=== PATIENT | female | born 2000 | race Caucasian/White ===

== ENCOUNTER 2020-12-26 04:11 | Emergency (ER) | payer OTHER ==
[~2020-12-26] VITALS: Ht 175.3 cm; Wt 75.0 kg
[2020-12-26 04:15] VITALS: BP 124/80
[2020-12-26] MEDS ORDERED: PENI500T PO (04:59)
[2020-12-26] MEDS ORDERED: ACETAMINOPHEN 500 MG TABLET PO ONE (05:00)
--- NOTE | 2020-12-26 05:00 | PHYS DOC ---
Past History Past Surgical History: No Surgical History Alcohol Use: None General Adult EDM: Chief Complaint: SORE THROAT HPI: HPI: Patient is a [age] year old [sex] who presents with [] Review of Systems: Review of Systems: Constitutional: Denies fever or chills Eyes: Denies change in visual acuity HENT: Denies nasal congestion or sore throat Respiratory: Denies cough or shortness of breath Cardiovascular: Denies chest pain or edema GI: Denies abdominal pain, nausea, vomiting, bloody stools or diarrhea : Denies dysuria Musculoskeletal: Denies back pain or joint pain Integument: Denies rash Neurologic: Denies headache, focal weakness or sensory changes Endocrine: Denies polyuria or polydipsia Lymphatic: Denies swollen glands Psychiatric: Denies depression or anxiety Current Medications: Current Meds: Current Medications Medications (Trade) Dose Ordered Sig/Abdiel Start Time Stop Time Status Last Admin Dose Admin Acetaminophen (Tylenol) 1,000 mg 1X ONCE 12/26/20 05:00 12/26/20 05:01 12/26/20 04:47 1,000 MG Penicillin V Potassium (Veetid) 500 mg 1X ONCE 12/26/20 05:00 12/26/20 05:01 UNV Allergies: Allergies: Allergies Coded Allergies Type Severity Reaction Last Updated Verified No Known Drug Allergies 12/26/20 No Physical Exam: PE: Constitutional: Well developed, well nourished, no acute distress, non-toxic appearance. [] HENT: Normocephalic, atraumatic, bilateral external ears normal, oropharynx moist, no oral exudates, nose normal. [] Eyes: PERRLA, EOMI, conjunctiva normal, no discharge. [] Neck: Normal range of motion, no tenderness, supple, no stridor. [] Cardiovascular:Heart rate regular rhythm, no murmur [] Lungs & Thorax: Bilateral breath sounds clear to auscultation [] Abdomen: Bowel sounds normal, soft, no tenderness, no masses, no pulsatile masses. [] Skin: Warm, dry, no erythema, no rash. [] Back: No tenderness, no CVA tenderness. [] Extremities: No tenderness, no cyanosis, no clubbing, ROM intact, no edema. [] Neurologic: Alert and oriented X 3, normal motor function, normal sensory function, no focal deficits noted. [] Psychologic: Affect normal, judgement normal, mood normal. [] Current Patient Data: Vital Signs: Vital Signs Date Time Temp Pulse Resp B/P (MAP) Pulse Ox O2 Delivery O2 Flow Rate FiO2 12/26/20 04:15 100.7 120 18 124/80 (95) 97 Room Air EKG: EKG: [] Radiology/Procedures: Radiology/Procedures: [] Heart Score: Risk Factors: Risk Factors: DM, Current or recent (<one month) smoker, HTN, HLP, family history of CAD, obesity. Risk Scores: Score 0 - 3: 2.5% MACE over next 6 weeks - Discharge Home Score 4 - 6: 20.3% MACE over next 6 weeks - Admit for Clinical Observation Score 7 - 10: 72.7% MACE over next 6 weeks - Early Invasive Strategies Course & Med Decision Making: Course & Med Decision Making Pertinent Labs and Imaging studies reviewed. (See chart for details) [] Dragon Disclaimer: Dragon Disclaimer: This electronic medical record was generated, in whole or in part, using a voice recognition dictation system. Departure Departure: Impression: Primary Impression: Strep pharyngitis Disposition: HOME / SELF CARE / HOMELESS Condition: STABLE Referrals: LAQUITA SCHAEFER DO, M[facility] (PCP) Patient Instructions: Strep Throat, [id number] Additional Instructions: Take over the counter Tylenol and/or Ibuprofen for pain or discomfort. Take prescribed antibiotics to completion. Scripts Penicillin V Potassium (PENICILLIN V POTASSIUM) 500 Mg Tablet 1 TAB PO BID for Strep throat for 10 Days, #20 TAB Prov: MAXIM CONTRERAS DO 12/26/20 MAXIM CONTRERAS DO Dec 26, 2020 04:59
[2020-12-26] MEDS ORDERED: DEXAMETHASONE 4 MG TABLET PO ONE (05:30)
[2020-12-26] MEDS ORDERED: PENICILLIN V K 250 MG TABLET. PO ONE (05:30)
== END 2020-12-26 05:05 | disposition home or self-care (01) ==
LOC: ER 04:11
DX: J02.0 Streptococcal pharyngitis (principal)
CPT/HCPCS: 87880; 99284; J8540

== ENCOUNTER 2021-01-31 13:14 | Emergency (ER) | payer OTHER ==
[~2021-01-31] VITALS: Ht 175.3 cm; Wt 75.0 kg
[~2021-01-31 13:14] MED LIST: PENI500T PO
[2021-01-31 13:40] VITALS: BP 110/80
[2021-01-31] MEDS ORDERED: CYCL5TAB PO (15:26)
--- NOTE | 2021-01-31 15:28 | PHYS DOC ---
Past History Past Surgical History: No Surgical History (NATA SANTOS APRN) Alcohol Use: None (NATA SANTOS APRN) General Adult EDM: Chief Complaint: HIP PAIN HPI: HPI: Patient is a 21-year-old female who presents to the emergency department today for bilateral hip/groin pain. Patient reports that she was running when she slipped in her legs went behind her and she feels like she pulled a muscle in her groin. Patient denies any fall or other injury. She rates her pain 8 out of 10. It is worse with movement. No treatment prior to arrival. Patient denies any loss of bowel or bladder, urinary symptoms or saddle anesthesias. (NATA SANTOS APRN) Review of Systems: Review of Systems: GUsee hpi Musculoskeletal: see hpi Neurologic: see hpi (NATA SANTOS APRN) Current Medications: Current Meds: Current Medications Medications (Trade) Dose Ordered Sig/Abdiel Start Time Stop Time Status Last Admin Dose Admin Acetaminophen/ Hydrocodone Bitart (Lortab 5/325) 1 tab 1X ONCE 01/31/21 15:30 01/31/21 15:31 UNV (NATA SANTOS APRN) Allergies: Allergies: Allergies Coded Allergies Type Severity Reaction Last Updated Verified No Known Drug Allergies 12/26/20 No (NATA SANTOS APRN) Physical Exam: PE: Constitutional: Well developed, well nourished, no acute distress, non-toxic ap pearance. [] HENT: Normocephalic, Eyes: PERRL, EOMI, conjunctiva normal, no discharge. [] Neck: Normal range of motion, no stridor Cardiovascular: Normal peripheral perfusion Lungs & Thorax: Normal work of breathing, no tachypnea Abdomen: Soft and flat Skin: Warm, dry, no erythema, no rash. [] Back: N normal range of motion Extremities: No tenderness, no cyanosis, no clubbing, ROM intact, no edema. Patient moving all 4 extremities, patient ambulatory, no shortening or rotation, range of motion intact of bilateral lower extremities and neurovascularly intact. Neurologic: Alert and oriented X 3, normal motor function, normal sensory function, no focal deficits noted. [] Psychologic: Affect normal, judgement normal, mood normal. [] (NATA SANTOS APRN) Current Patient Data: Vital Signs: Vital Signs Date Time Temp Pulse Resp B/P (MAP) Pulse Ox O2 Delivery O2 Flow Rate FiO2 01/31/21 13:40 98.0 88 16 110/80 (90) 96 Room Air (NATA SANTOS APRN) EKG: EKG: [] (NATA SANTOS APRN) Radiology/Procedures: Radiology/Procedures: [] (NATA SANTOS APRN) Heart Score: C/O Chest Pain: N/A Risk Factors: Risk Factors: DM, Current or recent (<one month) smoker, HTN, HLP, family history of CAD, obesity. Risk Scores: Score 0 - 3: 2.5% MACE over next 6 weeks - Discharge Home Score 4 - 6: 20.3% MACE over next 6 weeks - Admit for Clinical Observation Score 7 - 10: 72.7% MACE over next 6 weeks - Early Invasive Strategies (NATA SANTOS APRN) Course & Med Decision Making: Course & Med Decision Making Pertinent Labs and Imaging studies reviewed. (See chart for details) [] Patient presents to the emergency department for bilateral hip/groin pain after she slipped while running. Patient is refusing imaging but would like pain management. Patient's pain was treated in the emergency department. Patient advised to take anti-inflammatory medications at home and follow-up with her doctor.patient discharged with muscle relaxer. Patient also advised to apply ice for the first 24 hours followed by heat. I discussed with patient all findings and diagnostic testing as well as the need to follow-up with PCP for further evaluation and treatment or return to the ER if any new or worsening symptoms. Strict return precautions were also discussed at length. Patient voiced understanding and agreement with the plan. Patient is hemodynamically stable at the time of disposition. (NATA SANTOS APRN) Dragon Disclaimer: Dragon Disclaimer: This electronic medical record was generated, in whole or in part, using a voice recognition dictation system. (NATA SANTOS APRN) Attending Co-Sign The patient was seen and interviewed as well as examined at the bedside. The chart was reviewed. The case was discussed. Agree with the plan of care. (EDUARD YIP DO) Departure Departure: Impression: Primary Impression: Muscle strain Disposition: HOME / SELF CARE / HOMELESS Condition: GOOD Referrals: LAQUITA SCHAEFER DO, M[facility] (PCP) Patient Instructions: Muscle Strain Additional Instructions: You are seen in the emergency department today for bilateral hip pain you refused imaging at this time. Please take anti-inflammatory medications like ibuprofen or naproxen at home. You are also being discharged home with a muscle relaxer. Please take this as directed. This medication may cause sedation so do not take when you need to be alert, driving a vehicle or with alcohol. You can apply ice for the first 24 hours followed by heat. Please follow-up with your primary care provider on Wednesday regarding your ER visit. Please return to the emergency department if you develop worsening of your pain, inability to ambulate, decreased range of motion of your lower extremities or decreased sensation in your lower extremities, loss of bowel or bladder or numbness or tingling in your groin. Scripts Cyclobenzaprine Hcl (CYCLOBENZAPRINE HCL) 5 Mg Tablet 1 TAB PO TID for muscle pain for 5 Days, #15 TAB 0 Refills Prov: NATA SANTOS APRN 01/31/21 NATA SANTOS APRN Jan 31, 2021 15:28 EDUARD YIP DO Feb 01, 2021 15:56
[2021-01-31] MEDS ORDERED: HYDROcodone/APAP 5/325MG 1 TAB TABLET PO ONE (15:30)
== END 2021-01-31 15:40 | disposition home or self-care (01) ==
LOC: ER 13:14
DX: S39.011A Strain of muscle, fascia and tendon of abdomen, initial encounter (principal); X58.XXXA Exposure to other specified factors, initial encounter; Y93.89 Activity, other specified; Y92.89 Other specified places as the place of occurrence of the external cause; Y99.8 Other external cause status
CPT/HCPCS: 99283-25

== ENCOUNTER 2021-02-19 11:00 | Emergency (ER) | payer OTHER ==
[~2021-02-19 11:00] MED LIST changes: +CYCL5TAB PO
[2021-02-19 13:09] LABS: INFLUENZA A PATIENT NEGATIVE (NEGATIVE); INFLUENZA B PATIENT NEGATIVE (NEGATIVE)
== END 2021-02-19 11:58 | disposition home or self-care (01) ==
LOC: ER 11:00
DX: U07.1 COVID-19 (principal)
CPT/HCPCS: 87804; 99283; U0003

== ENCOUNTER 2021-05-16 01:23 | Emergency (ER) | payer OTHER ==
[~2021-05-16] VITALS: Ht 175.3 cm; Wt 72.0 kg
[2021-05-16 01:42] VITALS: BP 138/84
[2021-05-16 02:17] LABS: INFLUENZA A PATIENT NEGATIVE (NEGATIVE); INFLUENZA B PATIENT NEGATIVE (NEGATIVE)
--- NOTE | 2021-05-16 02:22 | PHYS DOC ---
Past History Past Surgical History: No Surgical History Additional Smoking Information: vapes Alcohol Use: Occasionally General Adult EDM: Chief Complaint: SORE THROAT HPI: HPI: 21-year-old female presents with 3-day history of sore throat. She presents early this morning because she is increasing cough and body aches. She was having difficulty sleeping so she came to the emergency room. She is not sure if she has had a fever at home. She is fully vaccinated against COVID-19 and influenza. She has no other complaints this time. Review of Systems: Review of Systems: Constitutional: Denies fever or chills Eyes: Denies change in visual acuity HENT: Nasal congestion and sore throat Respiratory: Cough without shortness of breath Cardiovascular: Denies chest pain or edema GI: Denies abdominal pain, nausea, vomiting, bloody stools or diarrhea : Denies dysuria Musculoskeletal: Denies back pain or joint pain Integument: Denies rash Neurologic: Denies headache, focal weakness or sensory changes Endocrine: Denies polyuria or polydipsia Lymphatic: Denies swollen glands Psychiatric: Denies depression or anxiety Allergies: Allergies: Allergies Coded Allergies Type Severity Reaction Last Updated Verified No Known Drug Allergies 05/16/21 No Physical Exam: PE: Constitutional: Well developed, well nourished, no acute distress, non-toxic appearance. [] HENT: Normocephalic, atraumatic, bilateral external ears normal, oropharynx moist, no tonsillar exudates, nose congested. [] Eyes: PERRLA, EOMI, conjunctiva normal, no discharge. [] Neck: Normal range of motion, no tenderness, supple, no stridor. [] Cardiovascular: Heart rate regular rhythm, no murmur [] Lungs & Thorax: Bilateral breath sounds clear to auscultation [] Abdomen: Bowel sounds normal, soft, no tenderness, no masses, no pulsatile masses. [] Skin: Warm, dry, no erythema, no rash. [] Back: No tenderness, no CVA tenderness. [] Extremities: No tenderness, no cyanosis, no clubbing, ROM intact, no edema. [] Neurologic: Alert and oriented X 3, normal motor function, normal sensory function, no focal deficits noted. [] Psychologic: Affect normal, judgement normal, mood normal. [] Current Patient Data: Labs: Laboratory Tests Test 05/16/21 01:35 Influenza Type A (Rapid) Negative (NEGATIVE) Influenza Type B (Rapid) Negative (NEGATIVE) SARS-CoV-2 Antigen (Rapid) Negative (NEGATIVE) Group A Streptococcus Rapid Negative (NEGATIVE) Vital Signs: Vital Signs Date Time Temp Pulse Resp B/P (MAP) Pulse Ox O2 Delivery O2 Flow Rate FiO2 05/16/21 01:42 99.9 106 18 138/84 (102) 94 Room Air EKG: EKG: [] Radiology/Procedures: Radiology/Procedures: [] Heart Score: C/O Chest Pain: N/A Risk Factors: Risk Factors: DM, Current or recent (<one month) smoker, HTN, HLP, family history of CAD, obesity. Risk Scores: Score 0 - 3: 2.5% MACE over next 6 weeks - Discharge Home Score 4 - 6: 20.3% MACE over next 6 weeks - Admit for Clinical Observation Score 7 - 10: 72.7% MACE over next 6 weeks - Early Invasive Strategies Course & Med Decision Making: Course & Med Decision Making Pertinent Labs and Imaging studies reviewed. (See chart for details) The patient's rapid strep is negative. Her rapid influenza and COVID-19 are also negative. This appears to be another viral URI with cough. I have advised supportive care such as rest, hydration, ibuprofen, and Tylenol. This should resolve on its own. She is stable for discharge at this time. [] Hernan Disclaimer: Hernan Disclaimer: This electronic medical record was generated, in whole or in part, using a voice recognition dictation system. Departure Departure: Impression: Primary Impression: Viral URI with cough Disposition: HOME / SELF CARE / HOMELESS Condition: STABLE Referrals: LAQUITA SCHAEFER DO, [facility] (PCP) Patient Instructions: Upper Respiratory Infection, Adult, [id number] EDUARD YIP DO May 16, 2021 02:22
== END 2021-05-16 02:28 | disposition home or self-care (01) ==
LOC: ER 01:23
DX: J06.9 Acute upper respiratory infection, unspecified (principal); F17.200 Nicotine dependence, unspecified, uncomplicated; Z20.822 Contact with and (suspected) exposure to COVID-19
CPT/HCPCS: 87070; 87428; 87880; 99283

== ENCOUNTER 2021-05-17 13:10 | Emergency (ER) | payer OTHER ==
[~2021-05-17] VITALS: Ht 170.2 cm; Wt 72.0 kg
[2021-05-17 13:20] VITALS: BP 114/67
--- NOTE | 2021-05-17 13:48 | PHYS DOC ---
Past History Past Surgical History: No Surgical History Alcohol Use: Occasionally General Adult EDM: Chief Complaint: COUGH HPI: HPI: Patient is a 21-year-old female presents with cough, sore throat. Patient was seen here yesterday and told she had a upper respiratory infection. Patient was tested for strep, influenza, Covi, which were all negative. Patient is returning today because she felt like she had a streak of blood in her sputum. Denies fever. Denies nausea/vomiting/diarrhea. Denies shortness of breath or chest pain. Review of Systems: Review of Systems: ROS At least 10 ROS systems have been reviewed and are negative except as documented in the HPI. General: Negative except as outlined in HPI above. Skin: Negative except as outlined in HPI above. HEENT: Negative except as outlined in HPI above. Neck: Negative except as outlined in HPI above. Respiratory: Negative except as outlined in HPI above.. Cardiovascular: Negative except as outlined in HPI above. Abdomen: Negative except as outlined in HPI above. : Negative except as outlined in HPI above. Back/MSK: Negative except as outlined in HPI above. Neuro: Negative except as outlined in HPI above. Psych: Negative except as outlined in HPI above. Allergies: Allergies: Allergies Coded Allergies Type Severity Reaction Last Updated Verified No Known Drug Allergies 05/16/21 No Physical Exam: PE: Constitutional: Well developed, well nourished, no acute distress, non-toxic appearance. [] HENT: bilateral external ears normal, oropharynx red and irritated, no oral exudates, nose normal. [] Eyes: PERRLA, conjunctiva normal, no discharge. [] Neck: Normal range of motion, no tenderness, supple, no stridor. [] Cardiovascular:Heart rate regular rhythm, no murmur [] Lungs & Thorax: Bilateral breath sounds clear to auscultation [] Abdomen: Bowel sounds normal, soft, no tenderness, no masses, no pulsatile masses. [] Skin: Warm, dry, no erythema, no rash. [] Back: No tenderness, no CVA tenderness. [] Extremities: No tenderness, no cyanosis, no clubbing, ROM intact, no edema. [] Neurologic: Alert and oriented X 3, normal motor function, normal sensory function, no focal deficits noted. [] Psychologic: Affect normal, judgement normal, mood normal. [] EKG: EKG: [] Radiology/Procedures: Radiology/Procedures: []Single view chest dated 05/17/2021 2:56 PM: COMPARISON: None Clinical Indication: Cough. Findings: Single upright portable exam of the chest was performed. Heart and mediastinal contours within normal limits. Elevation of right hemidiaphragm. Prominent perihilar linear markings. No consolidation or pleural effusion. No pneumothorax. Evaluation is limited due to low lung volumes. IMPRESSION: 1. Limited exam. No apparent acute abnormality. Electronically signed by: Reno Cortez MD (05/17/2021 2:57 PM) [id number] Heart Score: C/O Chest Pain: No Risk Factors: Risk Factors: DM, Current or recent (<one month) smoker, HTN, HLP, family history of CAD, obesity. Risk Scores: Score 0 - 3: 2.5% MACE over next 6 weeks - Discharge Home Score 4 - 6: 20.3% MACE over next 6 weeks - Admit for Clinical Observation Score 7 - 10: 72.7% MACE over next 6 weeks - Early Invasive Strategies Course & Med Decision Making: Course & Med Decision Making Pertinent Labs and Imaging studies reviewed. (See chart for details) [] 21-year-old female presents with cough and sore throat. Patient was seen here yesterday and tested for strep, influenza, Covid, which were all negative. Patient returned because she had blood streaking in her sputum. Denies vomiting blood. Denies coughing up blood. Patient is hemodynamically stable. Afebrile. Patient given dexamethasone to help with symptoms. Advised patient to continue taking [id number] medications. Ibuprofen and Tylenol for pain. Drink plenty of fluids. Use throat lozenges. Dragon Disclaimer: Dragon Disclaimer: This electronic medical record was generated, in whole or in part, using a voice recognition dictation system. Departure Departure: Impression: Primary Impression: URI with cough and congestion Disposition: 01 HOME / SELF CARE / HOMELESS Condition: STABLE Referrals: EFREN QUIROZ DO (PCP) Patient Instructions: Upper Respiratory Infection, Adult, [id number] Additional Instructions: You are seen the emergency room for concerns of blood tinged sputum. You are given dexamethasone to help with symptoms. Continue drinking plenty of fluids, Tylenol and ibuprofen at home for discomfort. Your symptoms should start to resolve in the next few days. EMERGENCY DEPARTMENT GENERAL DISCHARGE INSTRUCTIONS Thank you for coming to [facility] (ED) today and trusting us with you care. We trust that you had a positivie experience in our Emergency Department. If you wish to speak to the department management, you may call the director at . YOUR FOLLOW UP INSTRUCTIONS ARE FOLLOWS: 1. Do you have a private Doctor? If you do not have a private doctor, please ask for a resource list of physicians or clinics that may be able to assist you with follow up care. 2. The Emergency Physician has interpreted your x-rays. The X-Ray specialist will also review them. If there is a change in the findings, you will be notified in 48 hours when at all possible. 3. A lab test or culture has been done, your results will be reviewed and you will be notified if you need a change in treatment. ADDITIONAL INSTRUCTIONS AND INFORMATION: 1. Your care today has been supervised by a physician who is specially trained in emergency care. Many problems require more than one evaluation for a complete diagnosis and treatment. We recommend that you schedule your follow up appointment as recommended to ensure complete treatment of you illness or injury. If you are unable to obtain follow up care and continue to have a problem, or if your condition worsens, we recommend that you return to the ED. 2. We are not able to safely determine your condition over the phone nor are we able to give sound medical advice over the phone. For these safety reasons, if you call for medical advice we will ask you to come to the ED for further evaluation. 3. If you have any questions regarding these discharge instructions please call the ED at [phone]. SAFETY INFORMATION: In the interest of safety, wellness, and injury prevention; we encourage you to wear your sealbelt, if you smoke; quite smoking, and we encourage family to use a protective helmet for bicycling and other sporting events that present an increased risk for head injury. IF YOUR SYMPTOMS WORSEN OR NEW SYMPTOMS DEVELOP, OR YOU HAVE CONCERNS ABOUT YOUR CONDITION; OR IF YOUR CONDITION WORSENS WHILE YOU ARE WAITING FOR YOUR FOLLOW UP APPOINTMENT; EITHER CONTACT YOUR PRIMARY CARE DOCTOR, THE PHYSICIAN WHOSE NAME AND NUMBER YOU WERE GIVEN, OR RETURN TO THE ED IMMEDIATELY. MORENITA DEL ANGEL APRN May 17, 2021 13:48
[2021-05-17] MEDS ORDERED: DEXAMETHASONE SOD PHOS 10 MG/ML VIAL. IM ONE (14:00)
--- NOTE | 2021-05-17 14:59 | RAD ---
Single view chest dated 05/17/2021 2:56 PM: COMPARISON: None Clinical Indication: Cough. Findings: Single upright portable exam of the chest was performed. Heart and mediastinal contours within normal limits. Elevation of right hemidiaphragm. Prominent perihilar linear markings. No consolidation or p leural effusion. No pneumothorax. Evaluation is limited due to low lung volumes. IMPRESSION: 1. Limited exam. No apparent acute abnormality. Electronically signed by: Reno Cortez MD (05/17/2021 2:57 PM) [id number]
== END 2021-05-17 15:10 | disposition home or self-care (01) ==
LOC: ER 13:10
DX: J06.9 Acute upper respiratory infection, unspecified (principal)
CPT/HCPCS: 71045; 96372; 99283; J1100

== ENCOUNTER 2021-05-19 20:16 | Emergency (ER) | payer OTHER ==
[~2021-05-19] VITALS: Ht 170.2 cm; Wt 74.0 kg
[2021-05-19] MEDS ORDERED: guaiFENesin/CODEINE 100mg/10mg 5 ML LIQUID PO PRN (20:45)
[2021-05-19] MEDS ORDERED: diphenhydrAMINE HCL 25 MG CAPSULE PO ONE (20:45)
--- NOTE | 2021-05-19 20:46 | PHYS DOC ---
Past History Past Surgical History: No Surgical History Alcohol Use: Occasionally Adult General Chief Complaint Chief Complaint: COUGH HPI HPI Patient is a otherwise healthy 21-year-old female who presents to the emergency department with a chief complaint of nasal congestion, sore throat and cough over the last couple of days. States that she has been into this emergency d epartment a couple days ago and was told to take some medicines at home and was checked for pneumonia, Covid and flu and were negative. States she is taken Tylenol and Mucinex at home with little relief. Denies any fevers, rash, chest pain, shortness of breath, abdominal pain, nausea, vomiting, diarrhea. Denies any known ill contacts. States she is eating and drinking normally for her. States she is making urine and stool normally for her. Review of Systems Review of Systems Review of systems otherwise unremarkable except noted in HPI Allergies Allergies Allergies Coded Allergies Type Severity Reaction Last Updated Verified No Known Drug Allergies 05/16/21 No Physical Exam Physical Exam Constitutional: Well developed, well nourished, no acute distress, non-toxic appearance. [] HENT: Normocephalic, atraumatic, posterior oropharyngeal erythema bilaterally, oropharynx moist, no oral exudates, nose normal. [] Eyes:conjunctiva normal, no discharge. [] Neck: Normal range of motion, no tenderness, supple, no stridor. [] Cardiovascular: Sinus tachycardia Lungs & Thorax: No respiratory distress, mild bilateral upper respiratory co ngestion Abdomen: soft, no tenderness, no masses, no pulsatile masses. [] Skin: Warm, dry, no erythema, no rash. [] Back: No tenderness, no CVA tenderness. [] Extremities: No tenderness, no cyanosis, no clubbing, ROM intact, no edema. [] Neurologic: Alert and oriented X 3, able to sit, stand and walk without issue, no focal deficits noted. [] Psychologic: Affect normal, judgement normal, mood normal. [] EKG EKG [] Radiology/Procedures Radiology/Procedures [] Heart Score C/O Chest Pain: No Risk Factors: Risk Factors: DM, Current or recent (<one month) smoker, HTN, HLP, family history of CAD, obesity. Risk Scores: Risk Factors: DM, Current or recent (<one month) smoker, HTN, HLP, family history of CAD, obesity. Course & Med Decision Making Course & Med Decision Making Patient is a 21-year-old healthy female who presents with nasal congestion, sore throat and cough Vital signs notable for sinus tachycardia. Physical exam noted above. Given medications for symptom management Chest x-ray suspicious for consolidation. Started on antibiotics in the ED. Discussed symptom management at home Advised to follow-up so she can with her primary care physician. Gave work note. Gave return precautions to the ED. Patient grateful, verbalized understanding and agreed with plan of discharge [] Dragon Disclaimer Dragon Disclaimer This electronic medical record was generated, in whole or in part, using a voice recognition dictation system. Departure Departure: Impression: Primary Impression: Pneumonia Disposition: HOME / SELF CARE / HOMELESS Condition: STABLE Referrals: EFREN QUIROZ DO (PCP) Patient Instructions: Pneumonia, Adult Additional Instructions: Thank you for coming into the emergency department tonight and allowing us to take care of you. Please read the attached information carefully go over things we discussed. Please take your antibiotics as prescribed and until gone. Please begin a regimen at home of 1000 mg of Tylenol every 8 hours, 800 mg of ibuprofen every 8 hours, 50 mg of Benadryl every 6 hours and [id number] cough medicine. Delsym is a good [id number] cough medicine that you should take scheduled over the next couple of days. Please follow-up in the morning with your primary care physician. Please come back with new or concerning symptoms as discussed. Scripts Levofloxacin (LEVOFLOXACIN) 500 Mg Tablet 1 TAB PO DAILY for PNA for 6 Days, #6 TAB Prov: BREN LEACH MD 05/19/21 BREN LEACH MD May 19, 2021 20:46
--- NOTE | 2021-05-19 21:10 | RAD ---
EXAM: CHEST 1 VIEW History: Cough, fever COMPARISON: 05/17/2021 TECHNIQUE: Single portable radiograph of the chest FINDINGS: The cardiac silhouette is unremarkable. Faint airspace opacities bilateral lungs likely at electasis or infiltrate slightly to prior exam. The costophrenic sulci are clear and well demarcated. IMPRESSION: Faint airspace opacities bilateral lungs likely atelectasis or infiltrates. Follow-up to resolution. Electronically signed by: Armin Jc MD (05/19/2021 9:07 PM) [id number]
[2021-05-19] MEDS ORDERED: LEVO500T9 PO (21:12)
[2021-05-19] MEDS ORDERED: IBUPROFEN 800 MG TABLET. PO ONE (21:15)
[2021-05-19 21:29] VITALS: BP 122/66
[2021-05-19] MEDS ORDERED: levoFLOXacin 500 MG TABLET PO ONE (21:30)
== END 2021-05-19 21:27 | disposition home or self-care (01) ==
LOC: ER 20:16
DX: J18.9 Pneumonia, unspecified organism (principal)
CPT/HCPCS: 71045; 99284; Q0163

== ENCOUNTER 2021-06-30 03:13 | Emergency (ER) | payer OTHER ==
[~2021-06-30] VITALS: Ht 172.7 cm; Wt 72.7 kg
[2021-06-30 03:13] VITALS: BP 113/67
[~2021-06-30 03:13] MED LIST changes: +LEVO500T9 PO
--- NOTE | 2021-06-30 03:43 | PHYS DOC ---
Past History Past Surgical History: No Surgical History Alcohol Use: None General Adult EDM: Chief Complaint: CONGESTION HPI: HPI: 21-year-old female presents with congestion, fatigue, and body aches. She has had the symptoms for 2 days. She was told to come to the emergency room by her boss to get a note for work. They did not expressly asked that she get tested for COVID. The patient did have COVID-19 around [place]. She is also vaccinated. She has not had a fever at home. Review of Systems: Review of Systems: Constitutional: Denies fever or chills. Body aches, fatigue. Eyes: Denies change in visual acuity HENT: Nasal congestion Respiratory: Denies cough or shortness of breath Cardiovascular: Denies chest pain or edema GI: Denies abdominal pain, nausea, vomiting, bloody stools or diarrhea : Denies dysuria Musculoskeletal: Denies back pain or joint pain Integument: Denies rash Neurologic: Denies headache, focal weakness or sensory changes Endocrine: Denies polyuria or polydipsia Lymphatic: Denies swollen glands Psychiatric: Denies depression or anxiety Allergies: Allergies: Allergies Coded Allergies Type Severity Reaction Last Updated Verified No Known Drug Allergies 05/16/21 No Physical Exam: PE: Constitutional: Well developed, well nourished, no acute distress, non-toxic appearance. [] HENT: Normocephalic, atraumatic, bilateral external ears normal, oropharynx moist, no oral exudates, nose congested. [] Eyes: PERRLA, EOMI, conjunctiva normal, no discharge. [] Neck: Normal range of motion, no tenderness, supple, no stridor. [] Cardiovascular: Heart rate regular rhythm, no murmur [] Lungs & Thorax: Bilateral breath sounds clear to auscultation [] Abdomen: Bowel sounds normal, soft, no tenderness, no masses, no pulsatile masses. [] Skin: Warm, dry, no erythema, no rash. [] Back: No tenderness, no CVA tenderness. [] Extremities: No tenderness, no cyanosis, no clubbing, ROM intact, no edema. [] Neurologic: Alert and oriented X 3, normal motor function, normal sensory function, no focal deficits noted. [] Psychologic: Affect normal, judgement normal, mood normal. [] EKG: EKG: [] Radiology/Procedures: Radiology/Procedures: [] Heart Score: C/O Chest Pain: N/A Risk Factors: Risk Factors: DM, Current or recent (<one month) smoker, HTN, HLP, family history of CAD, obesity. Risk Scores: Score 0 - 3: 2.5% MACE over next 6 weeks - Discharge Home Score 4 - 6: 20.3% MACE over next 6 weeks - Admit for Clinical Observation Score 7 - 10: 72.7% MACE over next 6 weeks - Early Invasive Strategies Course & Med Decision Making: Course & Med Decision Making Pertinent Labs and Imaging studies reviewed. (See chart for details) We will test patient for COVID-19 and influenza. The patient is negative for COVID-19 and influenza. This is another viral URI with cough. I have advised supportive care at home. She is stable for discharge at this time. [] Dragon Disclaimer: Dragon Disclaimer: This electronic medical record was generated, in whole or in part, using a voice recognition dictation system. Departure Departure: Impression: Primary Impression: Viral URI Disposition: HOME / SELF CARE / HOMELESS Condition: STABLE Referrals: LAQUITA SCHAEFER DO, [facility] (PCP) Patient Instructions: Upper Respiratory Infection, Adult, [id number] EDUARD YIP DO June 30, 2021 03:43
[2021-06-30 04:39] LABS: INFLUENZA A PATIENT NEGATIVE (NEGATIVE); INFLUENZA B PATIENT NEGATIVE (NEGATIVE)
== END 2021-06-30 04:55 | disposition home or self-care (01) ==
LOC: ER 03:13
DX: J06.9 Acute upper respiratory infection, unspecified (principal); Z20.822 Contact with and (suspected) exposure to COVID-19
CPT/HCPCS: 87428; 99283